=== PATIENT | female | born 1985 | race Caucasian/White ===

== ENCOUNTER 2017-11-08 06:40 | Emergency (ER) | payer SELFPAY ==
[~2017-11-08] VITALS: Ht 152.4 cm; Wt 83.9 kg
[2017-11-08 06:44] VITALS: BP 155/95
--- NOTE | 2017-11-08 06:47 | NUR ---
PATIENT PRESENTS TO ED WITH LOWER BACK PAIN RADIATING TO BILAT LEGS, EPIGASTRIC PAIN, AND SPINAL PAIN RADIATING FROM LOWER BACK UP TO NECK X1 DAY. ALL PAINS ARE DESECRIBED 8/. PT DENIES TRAUMA. PT DENIES N/V/D; SKIN IS PINK/WARM/DRY; AAOX4 WITH EVEN AND STEADY GAIT; LUNGS CLEAR BL; HR EVEN AND REGULAR; PT DENIES ANY FEVER, CP, SOB, OR COUGH AT THIS TIME; VSS; PATIENT POSITIONED FOR COMFORT; HOB ELEVATED; BEDRAILS UP X2; BED DOWN. ER MD MADE AWARE OF PT STATUS. CONTINUE TO MONITOR.
--- NOTE | 2017-11-08 06:47 | NUR ---
TO BED # 8 AMB, REPORT GIVEN TO KATIE MEI.
--- NOTE | 2017-11-08 07:29 | NUR ---
DR YEN IN ROOM FOR EXAM
[2017-11-08 07:39] VITALS: BP 136/74
--- NOTE | 2017-11-08 07:40 | NUR ---
Patient discharged with v/s stable. Written and verbal after care instructions given and explained. Patient alert, oriented and verbalized understanding of instructions. Ambulatory with steady gait. All questions addressed prior to discharge. ID band removed. Patient advised to follow up with PMD. Rx of Medrol given. Patient educated on indication of medication including possible reaction and side effects. Opportunity to ask questions provided and answered.
== END 2017-11-08 07:38 | disposition home or self-care (01) ==
LOC: MED 06:40
DX: M54.40 Lumbago with sciatica, unspecified side (principal); I10 Essential (primary) hypertension
CPT/HCPCS: 81002; 81025; 99283

== ENCOUNTER 2019-01-20 09:30 | Inpatient (IN) | payer OTHER ==
[~2019-01-20] VITALS: Ht 152.4 cm; Wt 86.2 kg
[~2019-01-20 09:30] MED LIST: OXYTOCIN 20 UNITS in LACTATED RINGERS 1,000 ML IV SCH
[2019-01-20] MEDS ORDERED: PREN-380 PO (11:10)
[2019-01-20] MEDS ORDERED: LACTATED RINGERS 1,000 ML IV SCH (11:40)
[2019-01-20 12:17] LABS: BASOPHILS % (AUTO) 0.6 % (0.0-2.0); EOSINOPHILS # (AUTO) 0.1 K/uL (0-0.4); HEMATOCRIT 40.5 % (36-48); HEMOGLOBIN 13.6 g/dL (12.0-16.0); LYMPHOCYTES # (AUTO) 1.7 K/uL (2.5-16.5); LYMPHOCYTES % (AUTO) 23.4 % (20.5-51.1); MEAN CORPUSCULAR HEMOGLOBIN 30 pg (27-31); MEAN CORPUSCULAR HGB CONC 34 g/dL (33-37); MEAN CORPUSCULAR VOLUME 89.5 fL (80-94); MONOCYTES # (AUTO) 0.5 K/uL (0.8-1.0); MONOCYTES % (AUTO) 7.1 % (1.7-9.3); NEUTROPHILS # (AUTO) 5.1 K/uL (1.8-7.7); NEUTROPHILS % (AUTO) 67.9 % (42.2-75.2); PLATELET COUNT (AUTO) 194 K/uL (140-450); RED BLOOD CELL COUNT(AUTO) 4.53 MIL/uL (4.20-5.40); RED CELL DISTRIBUTION WIDTH 14.5 % (11.6-13.7); WHITE BLOOD COUNT (AUTO) 7.5 K/uL (4.8-10.8)
[2019-01-20 12:34] LABS: ANION GAP 13.6 (8-16); CARBON DIOXIDE 23.7 mmol/L (21-32); CREATININE 0.6 mg/dL (0.6-1.3); POTASSIUM 4.3 mmol/L (3.5-5.1)
[2019-01-20 12:35] LABS: ALBUMIN 2.4 g/dL (3.4-5.0); TOTAL BILIRUBIN 0.3 mg/dL (0.0-1.0)
[2019-01-20] MEDS ORDERED: ceFAZolin 1,000 MG VIAL ONE (13:50)
[2019-01-20] MEDS ORDERED: ONDANSETRON 4 MG/2 ML VIAL ONE (13:50)
[2019-01-20] MEDS ORDERED: MIDAZOLAM 2 MG/2 ML VIAL ONE (13:59)
[2019-01-20] MEDS ORDERED: MORPHINE PRES FREE 10 MG/10 ML AMP IV ONE (13:59)
[2019-01-20] MEDS ORDERED: NALBUPHINE 10 MG/ML AMP IVP PRN (14:20)
[2019-01-20] MEDS ORDERED: NALOXONE 0.4 MG/ML VIAL IVP PRN ×3 (14:20)
[2019-01-20] MEDS ORDERED: diphenhydrAMINE 50 MG/ML VIAL IVP PRN ×2 (14:20)
[2019-01-20] MEDS ORDERED: ONDANSETRON 4 MG/2 ML VIAL IVP PRN ×2 (14:20)
[2019-01-20] MEDS ORDERED: HYDROmorphone 1 MG/ML AMP IVP PRN (14:20)
[2019-01-20] MEDS ORDERED: MEPERIDINE 25 MG/ML SYR IVP PRN (14:20)
[2019-01-20] MEDS ORDERED: OXYTOCIN 20 UNITS/LR PREMIX 1,000 ML IV ONE (15:52)
[2019-01-20] MEDS ORDERED: METHYLERGONOVINE 0.2 MG/ML AMP IM PRN (17:30)
[2019-01-20] MEDS ORDERED: MEASLES, MUMPS, AND RUBELLA 1 VIAL SQVAC PRN (17:30)
[2019-01-20] MEDS: KETOROLAC 30 MG/ML VIAL IM/IVP SCH ×2 (18:11→23:57)
[2019-01-21] MEDS ORDERED: OXYTOCIN 20 UNITS/LR PREMIX 1,000 ML IV ONE (00:41)
[2019-01-21] MEDS: OXYTOCIN 20 UNITS in LACTATED RINGERS 1,000 ML IV SCH ×2 (00:45→09:43)
[2019-01-21 01:38] LABS: APPEARANCE,URINE CLEAR (CLEAR); BILIRUBIN,URINE NEGATIVE (NEGATIVE); BLOOD, URINE 3+ (NEGATIVE); COLOR,URINE YELLOW (YELLOW); LEUKOCYTE ESTERASE ,URINE NEGATIVE (NEGATIVE); NITRITE, URINE NEGATIVE (NEGATIVE); PH,URINE 6.5 (5.0-9.0); UGLUCOSE NEGATIVE (NEGATIVE)
[2019-01-21 01:59] LABS: RBC,URINE >100 /HPF (0-5); WBC,URINE 0-5 /HPF (0-5)
[2019-01-21] MEDS: KETOROLAC 30 MG/ML VIAL IM/IVP SCH (06:04)
[2019-01-21 08:21] LABS: BASOPHILS % (AUTO) 0.2 % (0.0-2.0); EOSINOPHILS % (AUTO) 0.6 % (0.0-4.0); HEMATOCRIT 34.7 % (36-48); HEMOGLOBIN 11.7 g/dL (12.0-16.0); LYMPHOCYTES # (AUTO) 1.5 K/uL (2.5-16.5); LYMPHOCYTES % (AUTO) 17.3 % (20.5-51.1); MEAN CORPUSCULAR HEMOGLOBIN 30 pg (27-31); MEAN CORPUSCULAR HGB CONC 34 g/dL (33-37); MEAN CORPUSCULAR VOLUME 89.7 fL (80-94); MONOCYTES # (AUTO) 0.6 K/uL (0.8-1.0); MONOCYTES % (AUTO) 7.2 % (1.7-9.3); NEUTROPHILS # (AUTO) 6.7 K/uL (1.8-7.7); NEUTROPHILS % (AUTO) 74.7 % (42.2-75.2); PLATELET COUNT (AUTO) 157 K/uL (140-450); RED BLOOD CELL COUNT(AUTO) 3.87 MIL/uL (4.20-5.40); RED CELL DISTRIBUTION WIDTH 14.3 % (11.6-13.7); WHITE BLOOD COUNT (AUTO) 8.9 K/uL (4.8-10.8)
--- NOTE | 2019-01-21 08:28 | NUR ---
PATIENT HAS BEEN SCREENED AND CATEGORIZED LOW NUTRITION RISK. PATIENT WILL BE SEEN WITHIN 7 DAYS OF ADMISSION. 01/26/[address]
[2019-01-21] MEDS ORDERED: BISACODYL 10 MG SUPP RC SCH (09:00)
[2019-01-21] MEDS: oxyCODONE/APAP 5/325 MG 1 TAB TAB PO PRN ×3 (11:29→21:34)
[2019-01-22] MEDS: oxyCODONE/APAP 5/325 MG 1 TAB TAB PO PRN ×2 (05:35→10:06)
[2019-01-22] MEDS ORDERED: SIMETHICONE 80 MG TAB.CHEW PO SCH (11:00)
[2019-01-22] MEDS: HYDROcodone/APAP 5/325 MG 1 TAB TAB PO PRN ×2 (15:26→22:12)
[2019-01-22] MEDS: SIMETHICONE 80 MG TAB.CHEW PO PRN (17:59)
[2019-01-22] MEDS: IBUPROFEN 600 MG TAB PO SCH (17:59)
[2019-01-23] MEDS: SIMETHICONE 80 MG TAB.CHEW PO PRN (08:41)
[2019-01-23] MEDS: BISACODYL 5 MG TABEC PO PRN (08:41)
[2019-01-23] MEDS: oxyCODONE/APAP 5/325 MG 1 TAB TAB PO PRN ×2 (08:41→21:03)
[2019-01-23] MEDS: HYDROcodone/APAP 5/325 MG 1 TAB TAB PO PRN (14:05)
[2019-01-24] MEDS: IBUPROFEN 600 MG TAB PO SCH ×3 (06:03→11:59)
[2019-01-24] MEDS: BISACODYL 5 MG TABEC PO PRN (08:07)
[2019-01-24] MEDS: HYDROcodone/APAP 5/325 MG 1 TAB TAB PO PRN (08:08)
[2019-01-24] MEDS ORDERED: FERR-15 PO (09:25)
[2019-01-24] MEDS ORDERED: ACET-9525 PO (09:25)
[2019-01-24] MEDS ORDERED: DOCU-299 PO (09:25)
== END 2019-01-24 13:50 | disposition home or self-care (01) | DRG 540 ==
LOC: MLD 09:30 → OBSVTOIN 11:44 → MFCC 18:09
PROVIDERS: ADMIT Obstetrics & Gynecology; ATTEND Obstetrics & Gynecology
PROC: 0UB10ZZ Excision of Left Ovary, Open Approach (ICD-10-PCS; 2019-01-20)
PROC: 10D00Z1 Extraction of Products of Conception, Low, Open Approach (ICD-10-PCS; principal; 2019-01-20 13:45)
DX: O34.211 Maternal care for low transverse scar from previous cesarean delivery (principal); N83.202 Unspecified ovarian cyst, left side; Z37.0 Single live birth; Z3A.38 38 weeks gestation of pregnancy; O34.83 Maternal care for other abnormalities of pelvic organs, third trimester
CPT/HCPCS: G0378 ×2; 36415; 80053; 81001; 85025; 86592; 86886; 86900; 86901; 88307; 90715; J0690; J1200; J1885; J2250; J2270; J2405; J2590; J7060; J7120